=== PATIENT | male | born 1995 ===

== ENCOUNTER 2018-03-05 20:02 | Emergency (ER) | payer MEDICAID, OTHER ==
[2018-03-05 20:12] VITALS: BP 131/79; PULSE 77; RESP 18; TEMP 98.3; O2SAT 99
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
== END 2018-03-05 22:16 | disposition home or self-care (01) ==
LOC: SUPCPDRO 20:02 → C.ER 20:02
DX: S43.402A Unspecified sprain of left shoulder joint, initial encounter (principal); S39.012A Strain of muscle, fascia and tendon of lower back, initial encounter; V89.2XXA Person injured in unspecified motor-vehicle accident, traffic, initial encounter